=== PATIENT | male | born 1985 | race Hispanic/Latino ===

== ENCOUNTER 2020-05-22 14:18 | Emergency (ER) | payer SELFPAY ==
--- NOTE | 2020-05-22 16:29 | RAD ---
EXAM: XR Hand Lt 3 View STANDARD PROVIDED CLINICAL HISTORY: Pain FINDINGS: There is no evidence for fracture or other acute osseous abnormality. Alignment appears anatomic. Yasmine nt spaces appear preserved. IMPRESSION: No evidence for an acute osseous abnormality. If there is persistent clinical concern, conservative m anagement and follow-up imaging advised.
[2020-05-22] MEDS ORDERED: Lidocaine 1% PF 5 ML VIAL ONE (16:41)
[2020-05-22] MEDS ORDERED: Bacitracin 1 PK ONE (17:29)
== END 2020-05-22 18:16 | disposition home or self-care (01) ==
LOC: ERS 14:18
DX: S01.411A Laceration without foreign body of right cheek and temporomandibular area, initial encounter (principal); S60.222A Contusion of left hand, initial encounter; S80.12XA Contusion of left lower leg, initial encounter; F17.210 Nicotine dependence, cigarettes, uncomplicated; W11.XXXA Fall on and from ladder, initial encounter
CPT/HCPCS: 12014